=== PATIENT | female | born 1985 | race Two or more races ===

== ENCOUNTER 2025-01-28 10:22 | Outpatient (AMB) | payer MEDICAID, SELFPAY ==
[2025-01-28 10:40] VITALS: BP 145/87; PULSE 94; RESP 18; TEMP 36.7; O2SAT 98; BMI 29.0
--- NOTE | 2025-01-28 10:40 | AMB.OBINITIA ---
Vital Signs 01/28/25 10:40 Height 1.63 m Height Method Stated Weight 76.714 kg Weight Measurement Method Standing Scale BMI 29.0 BP 145/87 H Blood Pressure Source Automatic Cuff Blood Pressure Location Right Upper Arm Position Sitting Respiration 18 Pulse 94 Pulse Source Monitor Temp 98.1 F Temp Source Temporal Artery Scan Pulse Oximetry (%) 98 Oxygen Delivery Method Room Air Allergies/Home Meds Allergies & Medications Allergies NKA* Allergy (Uncoded 01/01/21 20:03) Intake Visit Data Collection New Patient or Established: Established Patient (seen at [facility] within 3 years) Reason for Visit:: OBI LATE TO CARE 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 1. Little interest or pleasure in doing things: not at all 2. Feeling down, depressed, or hopeless: not at all Total score: 0 PHQ-9 3. Trouble falling or staying asleep, or sleeping too much: Not at all 4. Feeling tired or having little energy: Not at all 5. Poor appetite or overeating: Not at all 6. Feeling bad about yourself - or that you are a failure or have let yourself or your family down: Not at all 7. Trouble concentrating on things, such as reading the newspaper or watching television: Not at all 8. Moving or speaking so slowly that other people could have noticed? - Or the opposite - being so fidgety or restless that you have been moving around a lot more than usual: not at all 9. Thoughts that you would be better off or of hurting yourself in some way: Not at all Total score: 0 If you checked off any problems, how difficult have these problems made it for you to do your work, take care of things at home, or get along with other people?: not difficult at all Source: Developed by Drs. Kam Damico, Isabela Hartley, Gian Trejo and colleagues, with an educational ratna from [employer]. Depression screen completed yes Social History Living Situation History Housing: House Tobacco History Smoking Status: Never smoker Alcohol History Alcohol Intake: Never Domestic Abuse History Do You Feel Safe at Home: Yes History of Present Illness HPI Narrative 39-year-old 4 para 3 living 3 1 for OBI. Patient and partner are very happy about the . Her last. August 06, 2024. This gives a due date May 14, 2025. Patient is sure about her dates. Denies social habits. Denies surgery. Denies chronic illnesses fasting no history of chronic hypertension. She reports good movement. Denies leaking, bleeding or contractions. No existing DIELECTRIC TESTER complaints at this time. And no second trimester discomfort because baby weighed 8 pounds DIELECTRIC TESTER: Past Medical History Past Medical History: No Hx Neurological Disorders, No Hx Breast Cancer, No Hx Cardiac Disorders, No Hx Cancer, No Hx Blood Disorders, No Hx Gastrointestinal Disorders, No Hx Renal Disease, No Hx Diabetes Mellitus Type 1 and No Hx Diabetes Mellitus Type 2 OB Initial Visit OB Flowsheet OB Flowsheet Initial Weight: Not Recorded Date <del>?</del> EGA Weight BP Alb Glu CTX Pres Fundal ht FHR Mov Dilation Station Effacement Hx Notes Visit Note 01/28/25 <del>?</del> 25w 0d 76.714 kg 145/87 absent unknown 25 145 active 39-year-old 4 para 3 living 3. History of a at 32 weeks. The other 2 were normal. Biggest baby 8 pounds. Denies any leaking, bleeding, contractions. Denies any existing PIH symptoms. Urine protien -, ,no nitrites, no glucose OB panel today. Hemoglobin A1c, 1 hour glucose. And a CMP. Consult OB about blood pressures. And patient started on labetalol 200 mg twice daily. Schedule MFM ultrasound. NIPT and carrier screen. I discussed PIH complaints, diet and weight. Menstrual History Menstrual reliability: definite Flow: normal Menstrual regularity: regular Monthly: Yes Age at menarche: 10 On control pills at conception: No Associated symptoms (LMP): Denies amenorrhea, nausea, vomiting, fatigue, breast tenderness, urinary frequency, irritability, bloating or other OB History : 4 Para: 3 Hx # Pregnancies: 1 Hx Total # of Abortions (Spontaneous & Elective): 0 # of Living Children: 3 Delivery History 1st : date: 11/03/15 sex: female Gestational age at delivery (weeks): 32 Delivery type: vaginal weight (lbs): 1814.369 g Delivery complications: History of depression before or after : No 2nd : date: 06/30/18 sex: female Gestational age at delivery (weeks): 40 Delivery type: vaginal weight (lbs): 2721.554 g History of depression before or after : No 3rd : date: 01/01/21 sex: male Gestational age at delivery (weeks): 40 Delivery type: vaginal weight (lbs): 3628.739 g History of depression before or after : No Infection History & Risk Evaluation History of STDs: none HIV risk evaluation: low risk Hepatitis B risk evaluation: low risk Genetic Screening & History Genetic Screening/Teratology Counseling - Includes patient, baby's father, or anyone in either family with: 1. Patient's age 35 years or older as of estimated date of delivery: No 2. Thalassemia (Norwegian, Senegalese, Mediterranean, or Background); MCV less than 80: No 3. Neural Tube Defect (Meningomyelocele, Spina Bifida, or Anencephaly): No 4. Congenital Heart Defect: No 5. Down Syndrome: No 6. Jose-Sachs (Ashkenazi Jain, Cajun, Saudi Arabian Serbian): No 7. Byron Disease (Ashkenazi Jain): No 8. Familial Dysautonomia (Ashkenazi Jain): No 9. Sickle Cell Disease or Trait (): No 10. Hemophilia or other blood disorders: No 11. Muscular Dystrophy: No 12. Cystic Fibrosis: No 13. Costilla's Chorea: No 14. Mental Retardation/Autism: No 15. Other inherited genetic or chromosomal disorder: No 16. Maternal Metabolic Disorder (EG,TYPE 1 Diabetes, PKU): No 17. Patient or baby's father had a child with defects not listed above: No 18. Recurrent loss or a stillbirth: No 19. Medications (including supplements, vitamins, herbs or otc drugs)/illicit/recreational drugs/alcohol since last menstrual period: No 20. Any other: No Infection History 1. Live with someone with TB or exposed to TB: No 2. Rash or viral illness since last menstrual period: No 3. Hepatitis B,C: No Other (see comments) Source: [employer] Review of Systems Review of Systems Systems Reviewed: All systems reviewed, normal except as documented Constitutional Constitutional: Denies fatigue Gastrointestinal Gastrointestinal: Denies bloating, Denies nausea and Denies vomiting Genitourinary Genitourinary: Denies amenorrhea and Denies urinary frequency Psychiatric Psychiatric: Denies irritability Endocrine Endocrine: Denies fatigue Exam General Limitations: no limitations General Appearance: alert, in no apparent distress, comfortable, cooperative, healthy appearing, well developed and well groomed Head Head exam: atraumatic, normocephalic and normal inspection Chest Chest inspection: Present normal inspection and symmetric chest wall rise Resp Respiratory exam: Present normal lung sounds bilaterally Card Cardiovascular exam: Present regular rate, normal rhythm and normal heart sounds Abdominal Abdominal exam: Present soft and normal bowel sounds Psych Psychiatric exam: Present normal affect and normal mood Office Procedures OBC Clinic LOC & Office Proc's Nursing/Assessment Patient Status: Established Patient OB Clinic Nursing Assessment: Medication Reconciliation, Update PMH in EMR and Vital Signs OB Clinic Coordination of Care: Complex Care and Chronic Disease 1-5, Consent,records obtained, informed consent, Education Simp Pt/Fam, 2-3 Insurance Autorizations needed, Lab and Imaging orders, Results/Orders obtained and Staff clarify orders Special Needs: Heart tones Miscellaneous Interventions: Blood/Urine Collection Established Patient Charge Established Patient Point Assignment: 185 Established Patient Point Charge: EP Level 5 (160-above) Assessment & Plan Diagnosis / Problem List (1) Encounter for supervision of high risk in first trimester, antepartum: Status: Acute (2) Advanced maternal age (AMA) in : Status: Acute Plan Labetalol 200 mg p.o. twice daily start today. Discussed PIH signs symptoms. Schedule ultrasound with Dr. Longo. Discussed labor precautions. Continue prenatals. OB panel today with CMP, hemoglobin A1c, 1 hour GTT., NIPT and carrier screens. Discussed diet and weight. Increase fluids. Return in 2 weeks OB check
== END 2025-01-28 11:10 | disposition home or self-care (01) ==
LOC: HODSOBC 10:22
PROVIDERS: Supervising Provider Advanced Practice Midwife; Visit Provider Advanced Practice Midwife
DX: O09.522 Supervision of elderly multigravida, second trimester (principal); O09.292 Supervision of pregnancy with other poor reproductive or obstetric history, second trimester; Z3A.25 25 weeks gestation of pregnancy
CPT/HCPCS: 99214; 99215; G0463

== ENCOUNTER 2025-02-11 09:24 | Outpatient (AMB) | payer MEDICAID, SELFPAY ==
--- NOTE | 2025-02-11 09:34 | OBCLNT_ITS ---
Vital Signs 02/11/25 09:43 Height 1.63 m Height Method Stated Weight 76.317 kg Weight Measurement Method Standing Scale BMI 28.7 BP 120/77 Blood Pressure Source Automatic Cuff Blood Pressure Location Left Upper Arm Position Sitting Respiration 16 Pulse 88 Pulse Source Monitor Temp 97.2 F Temp Source Oral Pulse Oximetry (%) 98 Oxygen Delivery Method Room Air Allergies/Home Meds Allergies & Medications Allergies NKA* Allergy (Uncoded 02/11/25 09:34) Medication Reconciliation Vitamin * 1 tab PO QDAY #0 tabs 11/03/15 [History Confirmed 02/11/25] labetalol 200 mg tablet 200 mg PO BID 30 days #60 tabs 01/28/25 [Rx Confirmed 02/11/25] Intake Visit Data Collection New Patient or Established: Established Patient (seen at [facility] within 3 years) Reason for Visit:: OBC Seen by Clinical Staff ONLY (RN/MA): No 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 1. Little interest or pleasure in doing things: not at all 2. Feeling down, depressed, or hopeless: not at all Total score: 0 PHQ-9 3. Trouble falling or staying asleep, or sleeping too much: Not at all 4. Feeling tired or having little energy: Not at all 5. Poor appetite or overeating: Not at all 6. Feeling bad about yourself - or that you are a failure or have let yourself or your family down: Not at all 7. Trouble concentrating on things, such as reading the newspaper or watching television: Not at all 8. Moving or speaking so slowly that other people could have noticed? - Or the opposite - being so fidgety or restless that you have been moving around a lot more than usual: not at all 9. Thoughts that you would be better off or of hurting yourself in some way: Not at all Total score: 0 If you checked off any problems, how difficult have these problems made it for you to do your work, take care of things at home, or get along with other people?: not difficult at all Source: Developed by Drs. Kam Damico, Isabela Hartley, Gian Trejo and colleagues, with an educational ratna from [employer]. 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 History of a at 32 weeks. The other 2 were normal. Biggest baby 8 pounds. Denies any leaking, bleeding, contractions. Denies any existing PIH symptoms. Urine protien -, ,no nitrites, no glucose OB panel today. Hemoglobin A1c, 1 hour glucose. And a CMP. Consult OB about blood pressures. And patient started on labetalol 200 mg twice daily. Schedule MFM ultrasound. NIPT and carrier screen. I discussed PIH complaints, diet and weight. 02/11/25 -?-?-?-?-?-?-?-?-?-?-?-?- 27w 0d 76.317 kg 120/77 absent 27 145 ac tive Patient reports good compliance with labetalol 200 twice daily. Denies any PIH signs symptoms. MFM appointment is pending. Patient reports that she did have labs. Denies leaking, bleeding, contractions Obtain lab results today and notify patient if they are abnormal. After getting lab results if patient needs her GGT I will order it.. Follow-up on maternal- medicine referral to Dr. Longo. Discussed labor precautions. Continue low-dose baby aspirin and labetalol 200 twice daily. And return in 3 weeks for OB check REHANA Calculator Estimated Delivery Date Method Current WG Current Estimate 05/13/25 LMP (Certain) 27w 0d Notes Visit Date: 02/11/25 Last Updated by: Nathaly De La Vega CNM UT-, RPR::NR, rub imm, HBSAG-, HIV-, HC-, O+,abs-, GC/CT-, ,181, NIPT-, SMA-, CF- Visit Date: 01/28/25 Last Updated by: Nathaly De La Vega CNM 39 yo , PTD x1, lmp 08/05/24. EDC: 05/14/25 Start Labetolol 200 bid 01/28 Office Procedures OBC Clinic LOC & Office Proc's Nursing/Assessment Patient Status: Established Patient OB Clinic Nursing Assessment: Medication Reconciliation, Update PMH in EMR and Vital Signs OB Clinic Coordination of Care: Education Complex Pt/Fam, Consent,records obtained, informed consent, Lab and Imaging orders, Results/Orders obtained and Staff clarify orders Special Needs: Heart tones Established Patient Charge Established Patient Point Assignment: 115 Established Patient Point Charge: EP Level 3 (80-115) Assessment & Plan Diagnosis / Problem List (1) Advanced maternal age (AMA) in : Status: Acute (2) Encounter for supervision of high risk in second trimester, antepartum: Status: Acute Plan Continue labetalol 200 twice daily. Locate lab results and review them. Keep follow-up appointment with maternal- medicine when scheduled. Continue vitamins and low-dose baby aspirin. Discussed labor precautions. Return in 3 weeks OB check Additional Plan Follow Up: 3 Weeks (obc)
[2025-02-11 09:43] VITALS: BP 120/77; PULSE 88; RESP 16; TEMP 36.2; O2SAT 98; BMI 28.7
== END 2025-02-11 10:09 | disposition home or self-care (01) ==
LOC: HODSOBC 09:24
PROVIDERS: Supervising Provider Advanced Practice Midwife; Visit Provider Advanced Practice Midwife
DX: O09.522 Supervision of elderly multigravida, second trimester (principal); O09.292 Supervision of pregnancy with other poor reproductive or obstetric history, second trimester; Z3A.27 27 weeks gestation of pregnancy
CPT/HCPCS: 99213; G0463

== ENCOUNTER 2025-03-04 08:54 | Outpatient (AMB) | payer MEDICAID, SELFPAY ==
[2025-03-04 08:59] VITALS: BP 120/77; PULSE 85; RESP 16; TEMP 36.6; O2SAT 98; BMI 29.3
--- NOTE | 2025-03-04 08:59 | AMB.OBVISIT ---
Vital Signs 03/04/25 08:59 Height 1.63 m Height Method Stated Weight 78.018 kg Weight Measurement Method Standing Scale BMI 29.3 BP 120/77 Blood Pressure Source Automatic Cuff Blood Pressure Location Left Upper Arm Position Sitting Respiration 16 Pulse 85 Pulse Source Monitor Temp 97.9 F Temp Source Oral Pulse Oximetry (%) 98 Oxygen Delivery Method Room Air Allergies/Home Meds Allergies & Medications Allergies NKA* Allergy (Uncoded 03/04/25 09:08) Medication Reconciliation Vitamin * 1 tab PO QDAY #0 tabs 11/03/15 [History Confirmed 03/04/25] labetalol 200 mg tablet 200 mg PO BID 30 days #60 tabs 01/28/25 [Rx Confirmed 03/04/25] Intake Visit Data Collection New Patient or Established: Established Patient (seen at [facility] within 3 years) Reason for Visit:: CARE Seen by Clinical Staff ONLY (RN/MA): No Inventory Coordinator Required: No Do You Feel Safe at Home: Yes Authorities Contacted: N/A PCP or OBGYN visit in last 3 months: Yes Hx Now: Yes Are you currently on any form of Control: No Pain Present Currently: No Pain Scale Used: Tan-Ribeiro/Numerical Pain scale:: 0 Smoking Status Smoking Status: Never smoker Immunizations Flu Vaccine in the Last 12 Months: Yes Flu Vaccine Exclusion Criteria: Already Received Questionnaires Covid-19 Vaccine Questionnaire Has patient been vacinated for Covid-19 Have you been vacinated for Covid-19: No PHQ-9 PHQ-2 Over the last 2 weeks, how often have you been bothered by any of the following problems? 1. Little interest or pleasure in doing things: not at all 2. Feeling down, depressed, or hopeless: not at all Total score: 0 PHQ-9 3. Trouble falling or staying asleep, or sleeping too much: Not at all 4. Feeling tired or having little energy: Not at all 5. Poor appetite or overeating: Not at all 6. Feeling bad about yourself - or that you are a failure or have let yourself or your family down: Not at all 7. Trouble concentrating on things, such as reading the newspaper or watching television: Not at all 8. Moving or speaking so slowly that other people could have noticed? - Or the opposite - being so fidgety or restless that you have been moving around a lot more than usual: not at all 9. Thoughts that you would be better off or of hurting yourself in some way: Not at all Total score: 0 Source: Developed by Drs. Kam Damico, Isabela Hartley, Gian Trejo and colleagues, with an educational ratna from [employer]. 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 History of a at 32 weeks. The other 2 were normal. Biggest baby 8 pounds. Denies any leaking, bleeding, contractions. Denies any existing PIH symptoms. Urine protien -, ,no nitrites, no glucose OB panel today. Hemoglobin A1c, 1 hour glucose. And a CMP. Consult OB about blood pressures. And patient started on labetalol 200 mg twice daily. Schedule MFM ultrasound. NIPT and carrier screen. I discussed PIH complaints, diet and weight. 02/11/25 <del>?</del> 27w 0d 76.317 kg 120/77 absent 27 145 active Patient reports good compliance with labetalol 200 twice daily. Denies any PIH signs symptoms. MFM appointment is pending. Patient reports that she did have labs. Denies leaking, bleeding, contractions Obtain lab results today and notify patient if they are abnormal. After getting lab results if patient needs her GGT I will order it.. Follow-up on maternal- medicine referral to Dr. Longo. Discussed labor precautions. Continue low-dose baby aspirin and labetalol 200 twice daily. And return in 3 weeks for OB check 03/04/25 <del>?</del> 30w 0d 78.018 kg 120/77 absent unknown 30 145 active Reports good movement. Patient did not do third trimester labs. Unsure about with an appointment with MFM's. Denies leaking bleeding or contractions TDAP, 3rd tri labs ordered, appointment with Dr Longo pending. Discussed labor precautions. Increase fluids. Return in 2 weeks OB check REHANA Calculator Estimated Delivery Date Method Current WG Current Estimate 05/13/25 LMP (Certain) 30w 0d Notes Visit Date: 02/11/25 Last Updated by: Nathaly De La Vega CNM UT-, RPR::NR, rub imm, HBSAG-, HIV-, HC-, O+,abs-, GC/CT-, ,181, NIPT-, SMA-, CF- Visit Date: 01/28/25 Last Updated by: Nathaly De La Vega CNM 39 yo , PTD x1, lmp 08/05/24. EDC: 05/14/25 Start Labetolol 200 bid 01/28 Office Procedures OBC Clinic LOC & Office Proc's Nursing/Assessment Patient Status: Established Patient OB Clinic Nursing Assessment: Medication Reconciliation, Update PMH in EMR and Vital Signs OB Clinic Coordination of Care: AMA, Complex Care and Chronic Disease 1-5, Consent,records obtained, informed consent, Education Simp Pt/Fam, 1 Ins Authorization, Lab and Imaging orders, Results/Orders obtained and Staff clarify orders Special Needs: Heart tones Established Patient Charge Established Patient Point Assignment: 170 Injection/Vaccine Admin SQ Im Injection: Yes Immunizations diphth,pertus(acell),tetanus 2.5 Lf unit-8 mcg-5 Lf/0.5mL IM syringe Performing Provider: Nathaly De La Vega CNM Performing Location: [facility] Administered by: Imani Hill MA on 03/04/25 13:02 Dose Route Admin Location Dispensed Lot Number Expiration Date Package [facility] [place][NOTE 2] [employer] Central 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 Discussed labor precautions. Kick count. Tdap today. Sono with MFM is pending. Return in 2 weeks OB check continue labetalol 200 twice daily. And start weekly NST BPP at 32 weeks Additional Plan Follow Up: 2 Weeks (obc)
== END 2025-03-04 09:46 | disposition home or self-care (01) ==
PROVIDERS: Supervising Provider Advanced Practice Midwife; Visit Provider Advanced Practice Midwife
DX: O09.523 Supervision of elderly multigravida, third trimester (principal); Z3A.30 30 weeks gestation of pregnancy; Z23 Encounter for immunization
CPT/HCPCS: 90471; 90715; 96372

== ENCOUNTER 2025-03-25 09:04 | Outpatient (AMB) | payer MEDICAID, SELFPAY ==
[2025-03-25 09:18] VITALS: BP 117/76; PULSE 75; RESP 18; TEMP 36.4; O2SAT 98; BMI 29.4
--- NOTE | 2025-03-25 09:18 | OBCLNT_ITS ---
Vital Signs 03/25/25 09:18 Height 1.63 m Height Method Stated Weight 78.075 kg Weight Measurement Method Standing Scale BMI 29.4 BP 117/76 Blood Pressure Source Automatic Cuff Blood Pressure Location Right Upper Arm Position Sitting Respiration 18 Pulse 75 Pulse Source Monitor Temp 97.6 F Temp Source Temporal Artery Scan Pulse Oximetry (%) 98 Oxygen Delivery Method Room Air Allergies/Home Meds Allergies & Medications Allergies NKA* Allergy (Uncoded 03/25/25 09:18) Medication Reconciliation Vitamin * 1 tab PO QDAY #0 tabs 11/03/15 [History Confirmed 03/25/25] labetalol 200 mg tablet 200 mg PO BID 30 days #60 tabs 01/28/25 [Rx Confirmed 03/25/25] Immunizations Immunizations Flu Vaccine in the Last 12 Months: No Flu Vaccine Exclusion Criteria: No Exclusion Criteria Care OB Visit Log OB Flowsheet Initial Weight: Not Recorded Date -?-?-?-?-?-?-?-?-?-?-?-?- EGA Weight BP Alb Glu CTX Pres Fundal ht FHR Mov Dilation Station Effacement Hx Notes Visit Note 01/28/25 -?-?-?-?-?-?-?-?-?-?-?-?- 25w 0d 76.714 kg 145/87 absent unknown 25 145 active 39-year-old 4 para 3 living 3. History of a at 32 weeks. The other 2 were normal. Biggest baby 8 pounds. Denies any leaking, bleeding, contractions. Denies any existing PIH symptoms. Urine protien -, ,no nitrites, no glucose OB panel today. Hemoglobin A1c, 1 hour glucose. And a CMP. Consult OB about blood pressures. And patient started on labetalol 200 mg twice daily. Schedule MFM ultrasound. NIPT and carrier screen. I discussed PIH complaints, diet and weight. 02/11/25 -?-?-?-?-?-?-?-?-?-?-?-?- 27w 0d 76.317 kg 120/77 absent 27 145 ac tive Patient reports good compliance with labetalol 200 twice daily. Denies any PIH signs symptoms. MFM appointment is pending. Patient reports that she did have labs. Denies leaking, bleeding, contractions Obtain lab results today and notify patient if they are abnormal. After getting lab results if patient needs her GGT I will order it.. Follow-up on maternal- medicine referral to Dr. Longo. Discussed labor precautions. Continue low-dose baby aspirin and labetalol 200 twice daily. And return in 3 weeks for OB check 03/04/25 -?-?-?-?-?-?-?-?-?-?-?-?- 30w 0d 78.018 kg 120/77 absent unknown 30 145 active Reports good movement. Patient did not do third trimester labs. Unsure about with an appointment with MFM's. Denies leaking bleeding or contractions TDAP, 3rd tri labs ordered, appointment with Dr Longo pending. Discussed labor precautions. Increase fluids. Return in 2 weeks OB check 03/25/25 -?-?-?-?-?-?-?-?-?-?-?-?- 33w 0d 78.075 kg 117/76 absent unknown 33 145 active Reports good movement. Denies leaking, bleeding, contractions. Patient's ultrasound is still pending. She has [employer] health insurance. Her weekly NST BPP due to advanced maternal age has been approved. And patient is taking low-dose baby aspirin as directed Discussed zhanna valverde. Patient was given information to call Dr. Longo's office for appointment. Labor and delivery was called to get patient scheduled for her weekly NST BPP. Discussed kick count labor cautions and return in 2 weeks OB check REHANA Calculator Estimated Delivery Date Method Current WG Current Estimate 05/13/25 LMP (Certain) 33w 0d Notes Visit Date: 02/11/25 Last Updated by: Nathaly De La Vega CNM UT-, RPR::NR, rub imm, HBSAG-, HIV-, HC-, O+,abs-, GC/CT-, ,181, NIPT-, SMA-, CF- Visit Date: 01/28/25 Last Updated by: Nathaly De La Vega CNM 39 yo , PTD x1, lmp 08/05/24. EDC: 05/14/25 Start Labetolol 200 bid 01/28 Office Procedures OBC Clinic LOC & Office Proc's Nursing/Assessment Patient Status: Established Patient OB Clinic Nursing Assessment: Medication Reconciliation, Update PMH in EMR and Vital Signs OB Clinic Coordination of Care: Complex Care and Chronic Disease 1-5, Education Complex Pt/Fam, Consent,records obtained, informed consent, Lab and Imaging orders, Results/Orders obtained and Staff clarify orders Special Needs: Heart tones Established Patient Charge Established Patient Point Assignment: 140 Established Patient Point Charge: EP Level 4 (120-155) Assessment & Plan Diagnosis / Problem List (1) Encounter for supervision of high risk in third trimester, antepartum: Status: Acute (2) Advanced maternal age (AMA) in : Status: Acute Plan Patient was given information to call Dr. Longo to schedule her ultrasound. It is still pending. Patient has [employer]. Discussed labor precautions and kick count twice a day. We discussed OB labs. Patient to return in 2 weeks for OB check. Patient will be starting her weekly NST BPP because of AMA. Additional Plan Follow Up: 2 Weeks (obc)
== END 2025-03-25 09:43 | disposition home or self-care (01) ==
LOC: HODSOBC 09:04
PROVIDERS: Supervising Provider Advanced Practice Midwife; Visit Provider Advanced Practice Midwife
DX: O09.523 Supervision of elderly multigravida, third trimester (principal); Z3A.33 33 weeks gestation of pregnancy
CPT/HCPCS: 99214; G0463

== ENCOUNTER 2025-04-08 09:49 | Outpatient (AMB) | payer MEDICAID, SELFPAY ==
--- NOTE | 2025-04-08 10:13 | OBCLNT_ITS ---
Vital Signs 04/08/25 10:14 Height 1.63 m Height Method Stated Weight 79.152 kg Weight Measurement Method Standing Scale BMI 29.7 BP 115/78 Blood Pressure Source Automatic Cuff Blood Pressure Location Left Upper Arm Position Sitting Respiration 18 Pulse 100 Pulse Source Monitor Temp 97.2 F Temp Source Oral Pulse Oximetry (%) 98 Oxygen Delivery Method Room Air Allergies/Home Meds Allergies & Medications Allergies NKA* Allergy (Uncoded 04/08/25 10:16) Medication Reconciliation Vitamin * 1 tab PO QDAY #0 tabs 11/03/15 [History Confirmed 04/08/25] labetalol 200 mg tablet 200 mg PO BID 30 days #60 tabs 01/28/25 [Rx Confirmed 04/08/25] Immunizations Immunizations Flu Vaccine in the Last 12 Months: No Flu Vaccine Exclusion Criteria: No Exclusion Criteria Care OB Visit Log OB Flowsheet Initial Weight: Not Recorded Date -?-?-?-?-?-?-?-?-?-?-?-?- EGA Weight BP Alb Glu CTX Pres Fundal ht FHR Mov Dilation Station Effacement Hx Notes Visit Note 01/28/25 -?-?-?-?-?-?-?-?-?-?-?-?- 25w 0d 76.714 kg 145/87 absent unknown 25 145 active 39-year-old 4 para 3 living 3. History of a at 32 weeks. The other 2 were normal. Biggest baby 8 pounds. Denies any leaking, bleeding, contractions. Denies any existing PIH symptoms. Urine protien -, ,no nitrites, no glucose OB panel today. Hemoglobin A1c, 1 hour glucose. And a CMP. Consult OB about blood pressures. And patient started on labetalol 200 mg twice daily. Schedule MFM ultrasound. NIPT and carrier screen. I discussed PIH complaints, diet and weight. 02/11/25 -?-?-?-?-?-?-?-?-?-?-?-?- 27w 0d 76.317 kg 120/77 absent 27 145 ac tive Patient reports good compliance with labetalol 200 twice daily. Denies any PIH signs symptoms. MFM appointment is pending. Patient reports that she did have labs. Denies leaki ng, bleeding, contractions Obtai n lab results today and notify patient if they are abnormal. After getting lab results if patient needs her GGT I will order it.. Follow-up on maternal- medicine referral to Dr. Longo. Discussed labor precautions. Continue low-dose baby aspirin and labetalol 200 twice daily. And return in 3 weeks for OB check 03/04/25 -?-?-?-?-?-?-?--?-?-?-?-?- 30w 0d 78.018 kg 120/77 absent unknown 30 145 active Reports good movement. Patient did not do third trimester labs. Unsure about with an appointment with MFM's. Denies leaking bleeding or contractions TDAP, 3rd tri labs ordered, appointment with Dr Longo pending. Discussed labor precautions. Increase fluids. Return in 2 weeks OB check 03/25/25 -?-?-?-?-?-?-?-?-?-?-?-?- 33w 0d 78.075 kg 117/76 absent unknown 33 145 active Reports good movement. Denies leaking, bleeding, contractions. Patient's ultrasound is still pending. She has [employer] insurance. Her weekly NST BPP due to advanced maternal age has been approved. And patient is taking low-dose baby aspirin as directed Discussed zhanna valverde. Patient was given information to call Dr. Longo's office for appointment. Labor and delivery was called to get patient scheduled for her weekly NST BPP. Discussed kick count labor cautions and return in 2 weeks OB check 04/08/25 -?-?-?-?-?-?-?-?-?-?-?-?- 35w 0d 79.152 kg 115/78 absent cephalic 35 140 active Reports good movement. Denies leaking, bleeding, contractions. Patient did not do 3-hour GTT Third trimester labs today. Reviewed ultrasound. GBS today. Labor precautions and kick count reviewed Third trimester labs today. Reviewed ultrasound. GBS today. Labor precautions and kick count reviewed. dc baby asa in 1 week, continue week nST/BPP. [facility] bid REHANA Calculator Estimated Delivery Date Method Current WG Current Estimate 05/13/25 LMP (Certain) 35w 0d Notes Visit Date: 02/11/25 Last Updated by: Nathaly De La Vega CNM UT-, RPR::NR, rub imm, HBSAG-, HIV-, HC-, O+,abs-, GC/CT-, ,181, NIPT-, SMA-, CF- Visit Date: 01/28/25 Last Updated by: Nathaly De La Vega CNM 39 yo , PTD x1, lmp 08/05/24. EDC: 05/14/25 Start Labetolol 200 bid 01/28 Office Procedures OBC Clinic LOC & Office Proc's Nursing/Assessment Patient Status: Established Patient OB Clinic Nursing Assessment: Medication Reconciliation, Update PMH in EMR and Vital Signs OB Clinic Coordination of Care: Consent,records obtained, informed consent, Education Simp Pt/Fam, Lab and Imaging orders, Results/Orders obtained and Staff clarify orders Special Needs: Heart tones Established Patient Charge Established Patient Point Assignment: 110 Established Patient Point Charge: EP Level 3 (80-115) Assessment & Plan Diagnosis / Problem List (1) Encounter for supervision of high risk in third trimester, antepar serge: Status: Acute (2) Advanced maternal age (AMA) in : Status: Acute Plan Stop baby aspirin next week. Discussed labor precautions and kick count. GBS today. Continue weekly NST BPP. CMP with hemoglobin A1c and 1 hour. Return in a week OB check Additional Plan Follow Up: 1 Week (obc)
[2025-04-08 10:14] VITALS: BP 115/78; PULSE 100; RESP 18; TEMP 36.2; O2SAT 98; BMI 29.7
== END 2025-04-08 10:36 | disposition home or self-care (01) ==
LOC: HODSOBC 09:49
PROVIDERS: Supervising Provider Advanced Practice Midwife; Visit Provider Advanced Practice Midwife
DX: O09.523 Supervision of elderly multigravida, third trimester (principal); Z3A.35 35 weeks gestation of pregnancy; Z36.85 Encounter for antenatal screening for Streptococcus B
CPT/HCPCS: 99213; G0463

== ENCOUNTER 2025-04-24 15:42 | Outpatient (CLI) | payer MEDICAID, SELFPAY ==
[2025-04-24] VITALS (9 sets, daily range): BP systolic 125–139; BP diastolic 62–79; PULSE 68–81; RESP 18–97; TEMP 36.8; O2SAT 97–98; BMI 29.7
--- NOTE | 2025-04-24 15:28 | XR_ITS ---
Examination: Biophysical profile, ultrasound Date and time of exam: April 24, 2025, 1626 hours INDICATIONS: Diagnosis advanced maternal age Technique: Multiple transabdominal sonographic images of the pelvis abdomen obtained. Attention is directed to the breathing movement, gross body movement, amniotic fluid volume and tone. Findings: Amniotic fluid index 8.9 cm Total biophysical profile is 8 of 8. breathing movement is 2. Gross body movement is 2. tone is 2. Qualitative amniotic fluid volume is 2 Impression: Biophysical profile is 8 of 8.
== END 2025-04-24 16:58 | disposition home or self-care (01) ==
LOC: S4S1 15:43 → S4SX 15:44
PROVIDERS: Referring Provider Obstetrics & Gynecology; Visit Provider Obstetrics & Gynecology
DX: O09.523 Supervision of elderly multigravida, third trimester (principal); Z3A.37 37 weeks gestation of pregnancy
CPT/HCPCS: 59025; 76819

== ENCOUNTER 2025-04-28 09:27 | Outpatient (RCR) | payer MEDICAID, SELFPAY ==
--- NOTE | 2025-04-01 14:53 | XR_ITS ---
EXAMINATION: US OB biophysical profile ORDERING PROVIDER: Nathaly De La Vega CNM HISTORY: WEEKLY NST/BPP; AMA TECHNIQUE: Multiple transabdominal sonographic images were obtained by lab animal technologist and submitted for interpretation. COMPARISON: None. FINDINGS: FETUS: Bojorquez. HEART MOTION: 158 beats/min. AMNIOTIC FLUID INDEX: 11.2 cm BREATHING MOVEMENT: 2 . GROSS BODY MOVEMENT: 2 . TONE: 2 . QUALITATIVE AMNIOTIC FLUID VOLUME: 2 TOTAL BIOPHYSICAL PROFILE: 8 of 8 . IMPRESSION: Single live intrauterine gestation with biophysical profile 8 of 8.
[2025-04-01 15:33] VITALS: BP 106/56; PULSE 74; RESP 16; TEMP 36.7
--- NOTE | 2025-04-07 09:34 | XR_ITS ---
Examination: Biophysical profile, ultrasound Date and time of exam: April 07, 2025, 0938 hours INDICATIONS: Diagnosis advanced maternal age Technique: Multiple transabdominal sonographic images of the pelvis abdomen obtained. Attention is directed to the breathing movement, gross body movement, amniotic fluid volume and tone. Findings: Amniotic fluid index 11.3 cm Total biophysical profile is 8 of 8. breathing movement is 2. Gross body movement is 2. tone is 2. Qualitative amniotic fluid volume is 2 Impression: Biophysical profile is 8 of 8.
[2025-04-07 10:08] VITALS: BP 96/56; PULSE 90; RESP 16; TEMP 36.9
--- NOTE | 2025-04-14 09:41 | XR_ITS ---
Examination: Biophysical profile, ultrasound Date and time of exam: April 14, 2025, 0959 hours INDICATIONS: Diagnosis advanced maternal age Technique: Multiple transabdominal sonographic images of the pelvis abdomen obtained. Attention is directed to the breathing movement, gross body movement, amniotic fluid volume and tone. Findings: Amniotic fluid index 11.1 cm Total biophysical profile is 8 of 8. breathing movement is 2. Gross body movement is 2. tone is 2. Qualitative amniotic fluid volume is 2 Impression: Biophysical profile is 8 of 8.
[2025-04-14 10:55] VITALS: BP 113/62; PULSE 74; RESP 16; TEMP 36.8
--- NOTE | 2025-04-21 09:46 | XR_ITS ---
Examination: Biophysical profile, ultrasound Date and time of exam: April 21, 2025, 1008 hours INDICATIONS: Diagnosis advanced maternal age Technique: Multiple transabdominal sonographic images of the pelvis abdomen obtained. Attention is directed to the breathing movement, gross body movement, amniotic fluid volume and tone. Findings: Amniotic fluid index 6.6 cm Total biophysical profile is 8 of 8. breathing movement is 2. Gross body movement is 2. tone is 2. Qualitative amniotic fluid volume is 2 Impression: Biophysical profile is 8 of 8.
[2025-04-21 10:41] VITALS: BP 107/57; PULSE 86; RESP 16; TEMP 36.7
[2025-04-21] MEDS: RINGERS LACTATED 1000 ML 1,000 ML 999 ML IV (11:42)
[2025-04-21 11:57] LABS: ROM Swab Mixed By: PATTC1; Rupture of Fetal Membranes Negative (Negative); Swb Mxed in Solvent 1 min? Yes
--- NOTE | 2025-04-28 09:35 | XR_ITS ---
Examination: Biophysical profile, ultrasound Date and time of exam: April 28, 2025, 0943 hours INDICATIONS: Diagnosis advanced maternal age Technique: Multiple transabdominal sonographic images of the pelvis abdomen obtained. Attention is directed to the breathing movement, gross body movement, amniotic fluid volume and tone. Findings: Amniotic fluid index 8.4 cm Total biophysical profile is 8 of 8. breathing movement is 2. Gross body movement is 2. tone is 2. Qualitative amniotic fluid volume is 2 Impression: Biophysical profile is 8 of 8.
[2025-04-28 10:18] VITALS: BP 114/58; PULSE 76; RESP 16; TEMP 36.7
[2025-04-28] MEDS: RINGERS LACTATED 1000 ML 1,000 ML 999 ML IV (11:10)
--- NOTE | 2025-04-28 11:42 | XR_ITS ---
Examination: Complete OB ultrasound greater than 14 weeks Date and time of exam: April 28, 2025, 1321 hours INDICATIONS: Nonreactive NST today Findings: Viable intrauterine single fetus with single amniotic sac presentation cephalic spine maternal left Cardiac motion 153 bpm Placenta posterior grade 2 Umbilical cord insertion seen Amniotic fluid index 2.6 cm Ovaries obscured by bowel gas. Composite estimated gestational age based on BPD, head circumference, abdominal circumference, femur length is 37 weeks 6 days Estimated weight 3350 g. Survey of intracranial anatomy, spinal anatomy, abdominal anatomy, four-chamber heart performed with no abnormalities identified. Impression: Viable intrauterine gestation cephalic presentation.
== END 2025-04-28 23:59 | disposition home or self-care (01) ==
LOC: S4S1 09:27
PROVIDERS: Obstetrics & Gynecology; Referring Provider Advanced Practice Midwife; Visit Provider Advanced Practice Midwife
DX: O09.523 Supervision of elderly multigravida, third trimester (principal); Z3A.37 37 weeks gestation of pregnancy
CPT/HCPCS: 59025; 76805; 76819; 84112; J7120

== ENCOUNTER 2025-04-28 15:00 | Inpatient (IN) | payer MEDICAID, SELFPAY ==
[2025-04-28] VITALS (14 sets, daily range): BP systolic 0–159; BP diastolic 0–82; PULSE 58–86; TEMP 36.6–36.7; BMI 30.4
[2025-04-28 16:03] LABS: Basophils # (Auto) 0.0 Thou/mm3 (0.0-0.2); Basophils % (Auto) 0 % (0-2.5); Eosinophils # (Auto) 0.0 Thou/mm3 (0.0-0.5); Eosinophils % (Auto) 0 % (0-10); Hematocrit 37.0 % (36.0-46.0); Hemoglobin 12.7 g/dL (12.0-16.0); Immature Granulocytes Auto 0.02 Thou/mm3 (0.00-0.00); Lymphocytes # (Auto) 1.5 Thou/mm3 (1.0-4.8); Lymphocytes % (Auto) 19 % (10-50); Mean Corpuscular HGB Conc 34.3 g/dl (31.0-37.0); Mean Corpuscular Hemoglobin 32.2 pg (25.0-35.0); Mean Corpuscular Volume 94 fL (80-100); Monocytes # (Auto) 0.6 Thou/mm3 (0.0-0.8); Monocytes % (Auto) 7 % (0-12); Neutrophils # (Auto) 5.9 Thou/mm3 (1.8-7.7); Neutrophils % (Auto) 73 % (37-80); Nucleated Red Blood Cell # 0.00 Thou/mm3 (0.00-0.00); Nucleated Red Blood Cell % 0 /100 WBC (0); Platelet Count 145 Thou/mm3 (140-440); RDW Standard Deviation 46.5 fL (36.4-46.3); Red Blood Count 3.94 Miln/mm3 (4.00-5.20); White Blood Count 8.1 Thou/mm3 (3.6-11.0)
[2025-04-28 16:40] LABS: Syphilis Nonreactive (Nonreactive)
[2025-04-28 17:55] LABS: Basophils # (Auto) 0.0 Thou/mm3 (0.0-0.2); Basophils % (Auto) 0 % (0-2.5); Eosinophils # (Auto) 0.0 Thou/mm3 (0.0-0.5); Eosinophils % (Auto) 0 % (0-10); Hematocrit 38.1 % (36.0-46.0); Hemoglobin 12.8 g/dL (12.0-16.0); Immature Granulocytes Auto 0.03 Thou/mm3 (0.00-0.00); Lymphocytes # (Auto) 2.2 Thou/mm3 (1.0-4.8); Lymphocytes % (Auto) 21 % (10-50); Mean Corpuscular HGB Conc 33.6 g/dl (31.0-37.0); Mean Corpuscular Hemoglobin 31.5 pg (25.0-35.0); Mean Corpuscular Volume 94 fL (80-100); Monocytes # (Auto) 0.7 Thou/mm3 (0.0-0.8); Monocytes % (Auto) 6 % (0-12); Neutrophils # (Auto) 7.3 Thou/mm3 (1.8-7.7); Neutrophils % (Auto) 72 % (37-80); Nucleated Red Blood Cell # 0.00 Thou/mm3 (0.00-0.00); Nucleated Red Blood Cell % 0 /100 WBC (0); Platelet Count 137 Thou/mm3 (140-440); RDW Standard Deviation 46.5 fL (36.4-46.3); Red Blood Count 4.06 Miln/mm3 (4.00-5.20); White Blood Count 10.2 Thou/mm3 (3.6-11.0)
[2025-04-28 18:21] LABS: Alanine Aminotransferase 56 U/L (10-49); Albumin, Serum 3.5 gm/dL (3.5-5.0); Albumin/Globulin Ratio 1.2 (1.2-2.2); Alkaline Phosphatase 104 U/L (46-116); Anion Gap 10 (7-16); Aspartate Amino Transferase 38 U/L (0-34); BUN/Creatinine Ratio 12 Ratio (12-20); Bilirubin,Total 0.4 mg/dL (0.3-1.2); Blood Urea Nitrogen 6 mg/dL (9-23); Calcium 8.7 mg/dL (8.3-10.6); Calcium (Corrected) 9.1 mg/dL (8.5-10.1); Carbon Dioxide 22.2 mMol/L (20.0-31.0); Chloride 109 mMol/L (98-107); Creatinine (Component) 0.5 mg/dL (0.6-1.3); Estimated Creatinine Clearance 151.8 mL/min (>60); Globulin 3.0 gm/dL (2.3-3.5); Glucose 59 mg/dL (74-106); Osmolality,Calculated 276 (275-295); Potassium 4.0 mMol/L (3.4-5.1); Sodium 141 mMol/L (136-145); Total Protein 6.5 gm/dL (5.7-8.2); Uric Acid 4.2 mg/dL (3.1-7.8); eGFR > 60 See Note
[2025-04-28 18:34] LABS: Fibrinogen 399 mg/dL (175-375); INR 0.9 (0.9-1.3); Partial Thromboplastin Time 26.8 Seconds (22.0-36.0); Prothrombin Time 9.6 Seconds (9.0-12.2)
[2025-04-28 19:57] LABS: Collection Type, Urine Clean Catch
[2025-04-28 20:07] LABS: Amphetamine/Metham Scrn,Ur OB Negative (Negative); Benzoylecgonine Screen, Ur OB Negative (Negative); Creatinine,Random Urine 30 mg/dL (30-125); Opiate Screen,Urine OB Negative (Negative); Protein Total, Random Urine 8 mg/dL (1-14); THC Screen,Urine OB Negative (Negative)
[2025-04-28 20:08] LABS: Amorphous Crystals,Urine Present (Absent); Bacteria,Urine Rare; Bilirubin,Urine Negative (Negative); Blood,Urine 2+ (Negative); Calcium Oxalate Crystals,Urine Rare; Clarity,Urine Clear (Clear/Hazy); Color,Urine Lt-Yellow (Lt Yel-Yel); Glucose, Urine Negative (Negative); Ketones,Urine 1+ (Negative); Leukocyte Esterase,Urine Positive (Negative); Nitrite,Urine Negative (Negative); PH,Urine 7.0 (5.0-7.0); Protein,Urine Negative (Neg - Trace); RBC,Urine 1 /hpf (0-3); Specific Gravity,Urine 1.007 (1.001-1.035); Squamous Epithelial Cell,Urine 2 /hpf (0-5); Urobilinogen,Urine Negative mg/dL (0.0-1.0); WBC,Urine 4 /hpf (0-5)
[2025-04-28] MEDS: LABETALOL 100 MG TABLET 200 MG PO (21:00)
[2025-04-29] VITALS (30 sets, daily range): BP systolic 0–149; BP diastolic 0–83; PULSE 53–104; RESP 14–20; TEMP 36.8–37.3; O2SAT 97–99
[2025-04-29] MEDS: RINGERS LACTATED 1000 ML 1,000 ML 100 ML IV (03:19)
[2025-04-29] MEDS: OXYTOCIN in NS 20 units 20 UNIT/1,000 ML BAG 125 UNIT IV (04:08)
--- NOTE | 2025-04-29 04:20 | PD.LDHP ---
Documentation for date of: 04/29/25 OB Labor/Induct. HPI History of Present Illness : 4 Para: 3 Term pregnancies: 1 pregnancies: 1 Living children: 3 History of Abortions: Spontaneous and Elective: 0 History of sections: No History of : No REHANA: 05/13/25 Gestational Age (weeks): 38 History of present illness: Patient is a 39-year-old 4 para 3 at 38 weeks and 0 days who presented to labor and delivery triage for the second time in 3 days. Patient was here for her scheduled nonstress test due to AMA and gestational hypertension on labetalol. She was noted to have recurrent variables which did not resolve after IV hydration and resuscitative measures. Patient was subsequently placed in triage and given additional IV fluids. Ultrasound confirmed oligohydramnios with FINN of 2.6. She was admitted for induction of labor. Patient received care at the [facility] clinic with MARCELINO De La Vega. All her records were reviewed as scanned in Labs Labs: Negative: RPR, Hepatitis B, Rubella Titre, HIV, Chlamydia, Gonorrhea and Group Beta Strep and Unknown: Herpes Type 1, Herpes Type 2 and Covid-19 Review of Systems Review of Systems Systems Reviewed: All systems reviewed, normal except as documented Past Medical History Surgical History SURGICAL: Negative Section Meds Home Medications and Allergies Home Medications ?Medication ?Instructions ?Recorded ?Confirmed ?Type Vitamin * 1 tab PO QDAY #0 tabs 11/03/15 04/28/25 History Allergies Allergy/AdvReac Type Severity Reaction Status Date / Time NKA* Allergy Uncoded 04/28/25 16:22 OB Exam Physical Exam Vital signs: Temp Pulse BP Pulse Ox 98.1 F 61 146/70 H 98 04/28/25 18:13 04/29/25 04:08 04/29/25 04:08 04/29/25 04:05 Constitutional Constitutional: no acute distress Routine HEENT Exam Head: Present normocephalic and atraumatic Eye: Present EOMI and PERRL ENT: Present mucous membranes moist Routine Neck Exam Neck: Present supple and trachea midline Routine Cardiovascular Exam Cardiovascular: Present RRR Routine Abdominal Exam Abdominal: Present soft and normoactive bowel sounds Routine Extremities Exam Extremities: Present full ROM Routine Skin Exam Skin: Present intact, dry and warm Routine Neurological Exam Neurological: Present alert, oriented X3 and CN II-XII intact Routine Psychiatric Exam Psychiatric: Present normal affect and normal thought process OB Results Labs 04/28/25 17:23 04/28/25 17:23 Labs: Short CBC 04/28/25 04/28/25 Range/Units 12:00 17:23 WBC 8.1 10.2 (3.6-11.0) Thou/mm3 Hgb 12.7 12.8 (12.0-16.0) g/dL Hct 37.0 38.1 (36.0-46.0) % Plt Count 145 137 L (140-440) Thou/mm3 BMP 04/28/25 17:23 Sodium 141 Potassium 4.0 Chloride 109 H Carbon Dioxide 22.2 BUN 6 L Creatinine 0.5 L Glucose 59 L Calcium 8.7 Liver Function 04/28/25 Range/Units 17:23 Total Bilirubin 0.4 (0.3-1.2) mg/dL AST 38 H (0-34) U/L ALT 56 H (10-49) U/L Alkaline Phosphatase 104 (46-116) U/L Albumin 3.5 (3.5-5.0) gm/dL Urine 04/28/25 Range/Units 19:05 Urine Color Lt-Yellow (Lt Yel-Yel) Urine Clarity Clear (Clear/Hazy) Urine pH 7.0 (5.0-7.0) Ur Specific [place] 1.007 (1.001-1.035) Urine Protein Negative (Neg - Trace) Urine Glucose (UA) Negative (Negative) OB Assessment & Plan Assessment and Plan (1) Encounter for supervision of high risk in third trimester, antepartum: Status: Acute (2) Gestational hypertension: Status: Acute (3) Oligohydramnios delivered: Status: Acute Assessment and plan: Admit to inpatient status for induction of labor IV access, LR at 125 cc/h, labs to include CBC preeclampsia panel and type and screen and RPR Continue home dose of labetalol at 200 twice daily Cervical ripening with misoprostol, will proceed to oxytocin when Blackman score is favorable Group B strep negative Continuous maternal monitoring with close monitoring of maternal blood pressures
--- NOTE | 2025-04-29 04:24 | PD.LDDELS ---
Data (Bojorquez) Data Hx Section: No : 4 Term: 1 : 1 Livin Abortions: Spontaneous & Theraputic: 0 Delivery Data (Bojorquez) Labor Data Initiation of labor: Induction Induction/Augmentation Agent: Cytotec-PO ROM date: 04/29/25 ROM time: 03:32 Amniotic membrane rupture type: Spontaneous Amniotic fluid description: Clear Delivery Data Onset of labor date: 04/29/25 Onset of labor time: 00:00 Complete dilation date: 04/29/25 Complete dilation time: 03:55 delivery date: 04/29/25 delivery time: 04:05 Placenta delivery date: 04/29/25 Placenta delivery time: 04:12 Stage 1 total time: Labor - Stage 1 Duration 3 hours and 55 minutes Delivered by: Vianca Bloom (OB Clinic) Delivery nurse: francis MAJOR New[place] nurse: naye MAJOR Underwriting Internship at delivery: No Support person(s) at delivery: fob Other staff at delivery: Mayito Patricio RN Delivery Method Delivery method: Normal Vaginal Delivery Presentation: Vertex Anesthesia Type Anesthesia Type: None Placenta Placenta delivery description: Spontaneous Cord blood sent to lab: Yes cord blood collection: Cord Blood Type Episiotomy Episiotomy description: None Umbilical Cord cord description: 3 Vessels [place] Data (Bojorquez) Data order: 1 [place]'s gender: Female Identification band number: [id number] 1 minute: 9 5 minutes: 9
[2025-04-29] MEDS: TRANEXAMIC ACID 1,000 MG IVPB 1,000 MG/100 ML BAG 200 MG IV (04:25)
[2025-04-29 07:43] LABS: Basophils # (Auto) 0.0 Thou/mm3 (0.0-0.2); Basophils % (Auto) 0 % (0-2.5); Eosinophils # (Auto) 0.0 Thou/mm3 (0.0-0.5); Eosinophils % (Auto) 0 % (0-10); Hematocrit 36.2 % (36.0-46.0); Hemoglobin 12.1 g/dL (12.0-16.0); Immature Granulocytes Auto 0.04 Thou/mm3 (0.00-0.00); Lymphocytes # (Auto) 1.3 Thou/mm3 (1.0-4.8); Lymphocytes % (Auto) 9 % (10-50); Mean Corpuscular HGB Conc 33.4 g/dl (31.0-37.0); Mean Corpuscular Hemoglobin 31.4 pg (25.0-35.0); Mean Corpuscular Volume 94 fL (80-100); Monocytes # (Auto) 0.5 Thou/mm3 (0.0-0.8); Monocytes % (Auto) 4 % (0-12); Neutrophils # (Auto) 12.5 Thou/mm3 (1.8-7.7); Neutrophils % (Auto) 87 % (37-80); Nucleated Red Blood Cell # 0.00 Thou/mm3 (0.00-0.00); Nucleated Red Blood Cell % 0 /100 WBC (0); Platelet Count 128 Thou/mm3 (140-440); RDW Standard Deviation 46.2 fL (36.4-46.3); Red Blood Count 3.85 Miln/mm3 (4.00-5.20); White Blood Count 14.4 Thou/mm3 (3.6-11.0)
[2025-04-29] MEDS: LABETALOL 100 MG TABLET 200 MG PO (09:26)
--- NOTE | 2025-04-29 09:26 | PC.CC ---
Patient is a 39 year-old, female, presents to the hospital to deliver her baby girl. SHEET HANGER received a referral for concerns of late to care. SHEET HANGER, Joselin made [id number] contact to complete an assessment due to of late to care. SHEET HANGER introduced herself, role in the agency, reason for visit, and discussed limits of confidentiality. Patient appeared alert and oriented to self, time, place, and situation. Patient made good eye contact. Patient was cooperative. Patient?s behavior appeared ordinary. No signs of delusions or hallucinations. Patient confirmed information on demographics and reports to living at home with her 3 other children ages 9, 6, and 4 with her /FOB Mario Linares . Patient reports she was late to care, as she could not find a provider after she found out she was . When she found a provider, the clinic could not provide her an appointment until she was 20 weeks. Upon establishing care, she was consistent. SHEET HANGER provided psychoeducation regarding baby blues and Post- Depression, as well as counseling groups at the [facility], and [facility]. SW provided community resources: Warm Line and Crisis Line. Patient denied history with CWS as this is her first child. Patient denied history of domestic violence. Patient reports she has all the supplies she needs for her new-born and is receiving WIC but not for her baby for her 4 year-old. Patient reports her support system includes husbands family. ASW provided update to bedside PEDRITO Montiel.
[2025-04-30 04:00] VITALS: BP 129/78; PULSE 58; RESP 16; TEMP 36.6; O2SAT 98
--- NOTE | 2025-04-30 07:39 | PD.LDPPPRG ---
Subjective Subjective Interval history: PPD #0 Exam Vital Signs Temp Pulse Resp BP Pulse Ox O2 Del Method 97.8 F 58 L 16 129/78 98 Room Air 04/30/25 04:00 04/30/25 04:00 04/30/25 04:00 04/30/25 04:00 04/30/25 04:00 04/30/25 04:00 Narrative Exam Patient had a normal vaginal delivery. care routine. She is doing well, VSS alert and oriented/normal insight and judgment/denies depression or anxiety No chest pain No shortness of breath No fever Back pain manageable/denies Moving all extremities No calf pain Ambulating pain managed by Tylenol and Motrin, normal Lochia average/ uterus firm Voiding spontaneously Other medical issues none / platelets 127 k Other concerns nne Planning to breast-feed/bottle Feed//both Counseled on breast-feeding Counseled on care and follow-up Objective Labs 04/29/25 07:30 04/28/25 17:23 Labs: Laboratory Results - last 24 hr 04/29/25 07:30 WBC 14.4 H D RBC 3.85 L Hgb 12.1 Hct 36.2 MCV 94 MCH 31.4 MCHC 33.4 RDW Std Deviation 46.2 Plt Count 128 L Neut % (Auto) 87 H Lymph % (Auto) 9 L [place] % (Auto) 4 Eos % (Auto) 0 Baso % (Auto) 0 Neut # (Auto) 12.5 H Lymph # (Auto) 1.3 [place] # (Auto) 0.5 Eos # (Auto) 0.0 Baso # (Auto) 0.0 Immature Gran # (Auto) 0.04 H Absolute Nucleated RBC 0.00 Immature Gran % 0 Nucleated RBC % 0 Assessment & Plan Problem List (1) Gestational hypertension: Status: Acute (2) Oligohydramnios delivered: Status: Acute (3) Advanced maternal age (AMA) in : Status: Acute Plan Comment Plan Comment: patient doing well / platelets repeat 128 k stable / discharge on 04/30/2025 Time Spent With Patient Time: Total time spent is greater than 50% in coordination of care (as documented) at patient's floor/unit and/or counseling patient: Time with patient: less than 15 minutes
[2025-04-30 07:40] VITALS: BP 136/87; PULSE 65; RESP 18; TEMP 36.8; O2SAT 97
--- NOTE | 2025-04-30 07:42 | PD.LDDS ---
DS: Providers Provider Date of admission: 04/28/25 15:00 Primary care physician: Physician No Primary/Family Admitting Provider: Mitchel Lazar MD Attending Provider on Admission: Mitchel Lazar MD Consults: 04/29/25 06:18 Referral Routine Comment: Attending Provider on DC: Rizwana Bonilla MD Discharging Provider: Rizwana Bonilla MD DS: Diagnosis Discharge Diagnosis (1) Oligohydramnios delivered: Status: Acute (2) Gestational hypertension: Status: Acute (3) Advanced maternal age (AMA) in : Status: Acute (4) Thrombocytopenia affecting : Status: Acute Problem List Completed Was Problem List Reviewed/Reconciled?: Yes Summary/Hosp Course Brief History: Patient is a 39-year-old 4 para 3 at 38 weeks and 0 days who presented to labor and delivery triage for the second time in 3 days. Patient was here for her scheduled nonstress test due to AMA and gestational hypertension on labetalol. She was noted to have recurrent variables which did not resolve after IV hydration and resuscitative measures. Patient was subsequently placed in triage and given additional IV fluids. Ultrasound confirmed oligohydramnios with FINN of 2.6. She was admitted for induction of labor. Patient received care at the [facility] with MARCELINO De La Vega. All her records were reviewed as scanned in/ patient delivered on 04/29/2025 at 0400 am approx / platelets are stable Peripartum Data Delivery Method: Normal Vaginal Delivery Episiotomy Description: None Time Spent with Patient Time attestation: Total time spent providing and/or coordinating discharge services: Exam Vital Signs Temp Pulse Resp BP Pulse Ox O2 Del Method 97.8 F 58 L 16 129/78 98 Room Air 04/30/25 04:00 04/30/25 04:00 04/30/25 04:00 04/30/25 04:00 04/30/25 04:00 04/30/25 04:00 Narrative Exam Patient had a normal vaginal delivery. care routine. She is doing well, VSS alert and oriented/normal insight and judgment/denies depression or anxiety No chest pain No shortness of breath No fever Back pain manageable/denies Moving all extremities No calf pain Ambulating pain managed by Tylenol and Motrin, normal Lochia average Voiding spontaneously Other medical issues Other concerns Planning to breast-feed/bottle Feed//both Counseled on breast-feeding Counseled on care and follow-up Discharge Plan Plan Patient Disposition: HOME (Self Care) Patient condition on transfer: Stable Prescriptions/Referrals Prescriptions/Med Rec: New ibuprofen 400 mg Tablet 800 mg PO X1 PRN (Reason: uterine cramping) Qty: 30 0RF No Action labetalol 200 mg tablet 200 mg PO BID 30 Days Qty: 60 4RF Vitamin * 1 EACH tablet 1 tab PO QDAY Qty: 0 Referrals: No Primary/Family,Physician [Primary Care Provider] Patient/Caregiver Discharge Instructions Print Language: Togolese Stand Alone Forms: [employer] Award Info., Patient Portal Info Letter Planned Discharge Date 04/30/25 (1) Oligohydramnios delivered Qualifiers: Fetus number: single or unspecified fetus Trimester: third trimester Qualified Code(s): O41.03X0 - Oligohydramnios, third trimester, not applicable or unspecified (2) Gestational hypertension Qualifiers: Trimester: unspecified trimester Qualified Code(s): O13.9 - Gestational [-induced] hypertension without significant proteinuria, unspecified trimester
[2025-04-30 08:05] VITALS: BP 136/87; PULSE 65
[2025-04-30] MEDS: LABETALOL 100 MG TABLET 200 MG PO (08:05)
== END 2025-04-30 13:15 | disposition home or self-care (01) | DRG 560 ==
LOC: S4SX 04-29 05:00 → S4NX 04-29 06:38
PROVIDERS: Admitting Provider Obstetrics & Gynecology; Visit Provider Obstetrics & Gynecology
DX: O13.4 Gestational [pregnancy-induced] hypertension without significant proteinuria, complicating childbirth (principal); O41.03X0 Oligohydramnios, third trimester, not applicable or unspecified; O99.12 Other diseases of the blood and blood-forming organs and certain disorders involving the immune mechanism complicating childbirth; D69.6 Thrombocytopenia, unspecified; Z3A.38 38 weeks gestation of pregnancy; Z37.0 Single live birth
CPT/HCPCS: 36415; 59409; 80053; 80307; 81001; 82570; 84156; 84550; 85025; 85384; 85610; 85730; 86780; 86850; 86900; 86901; 94762; J2590; J3490; J7120; A9270